=== PATIENT | male | born 1960 | race Two or more races ===

== ENCOUNTER 2024-07-03 15:10 | Emergency (ER) | payer OTHER, MEDICAID ==
[~2024-07-03] VITALS: Ht 170.2 cm; Wt 79.8 kg
[2024-07-03 19:38] VITALS: PULSE 65; TEMP 97.9
[2024-07-03] MEDS: HYDROcodone-ACET 5/325MG TAB PO ONE (19:44)
[2024-07-03] MEDS ORDERED: LORA10CA PO (20:58)
[2024-07-03] MEDS ORDERED: CYCL-838 PO (20:58)
[2024-07-03] MEDS ORDERED: IBU600T PO (20:58)
[2024-07-03 21:25] VITALS: BP 137/76; PULSE 67; RESP 16; O2SAT 98
== END 2024-07-03 21:30 | disposition home or self-care (01) ==
LOC: ER 15:10
DX: S29.012A Strain of muscle and tendon of back wall of thorax, initial encounter (principal); I10 Essential (primary) hypertension; R51.9 Headache, unspecified; W11.XXXA Fall on and from ladder, initial encounter; Y93.89 Activity, other specified; Y92.89 Other specified places as the place of occurrence of the external cause; Y99.8 Other external cause status
CPT/HCPCS: 70450